=== PATIENT | female | born 1975 ===

== ENCOUNTER 2022-05-26 10:28 | Observation (INO) ==
[2022-05-26] MEDS ORDERED: Ondansetron 4 mg VIAL 2 MG/ML 2 ml VIAL ONE (10:38)
[2022-05-26] MEDS ORDERED: oxyCODONE SR 10 mg TAB ONE (10:38)
[2022-05-26] MEDS ORDERED: Scopolamine 1 mg/72hr PATCH ONE (10:38)
[2022-05-26] MEDS ORDERED: Clindamycin 900 MG/D5W BAG IVPB ONE (11:15)
[2022-05-26 11:19] LABS: ABS Eosinophils 0.1 10^3/ul (0-0.6); ABS Lymphocytes 1.6 10^3/ul (1.0-4.8); ABS Monocytes 0.3 10^3/ul (0-0.8); ABS Neutrophils 3.8 10^3/ul (1.5-7.7); Eosinophil % 2.1 %; Hematocrit 40 % (35-47); Hemoglobin 13.6 g/dL (12.0-16.0); Lymphocyte % 27.6 %; Mean Corpuscular HGB Conc 34 g/dL (31-36); Mean Corpuscular Hemoglobin 30 pg (27-31); Mean Corpuscular Volume 89 fL (80-97); Mean Platelet Volume 8.9 fL (7.4-10.4); Nucleated Red Blood Cells % 0.1; Platelet Count 172 10^3/uL (150-450); Red Blood Count 4.55 10^6 /uL (3.70-4.87); Red Cell Distribution Width 13 % (10-15); White Blood Count 5.9 10^3/uL (3.5-10.8)
[2022-05-26] MEDS ORDERED: fentaNYL 100 mcg/2 ml 50 MCG/ML VIAL IV SLOW PU ONE (11:32)
[2022-05-26] MEDS ORDERED: Flumazenil 0.5 mg/5 ml 0.1 MG/ML 5 ml VIAL IV PRN (11:32)
[2022-05-26] MEDS ORDERED: Naloxone 0.4 mg VIAL 0.4 mg/ml 1 ml VIAL IV PUSH PRN ×2 (11:32→11:57)
[2022-05-26] MEDS ORDERED: Midazolam 10 mg/10 ml VIAL 1 mg/ml 10 ml VIAL (10 mg) IV SLOW PU ONE (11:32)
[2022-05-26 11:37] LABS: Activated Partial Thrombo Time 30.5 seconds (26.0-38.0); INR 1.04 (0.88-1.18)
[2022-05-26] MEDS ORDERED: fentaNYL 100 mcg/2 ml 50 MCG/ML VIAL ONE (11:51)
[2022-05-26] MEDS ORDERED: Lidocaine 1% VIAL 10 MG/ML VIAL 30 ML ONE (11:51)
[2022-05-26] MEDS ORDERED: nitroGLYCERIN DRIP 25,000 MCG/250 ML BTL ONE (11:51)
[2022-05-26] MEDS ORDERED: Midazolam 5 mg/5 ml VIAL 1 mg/ml 5 ml VIAL (5 mg) ONE (11:51)
[2022-05-26] MEDS ORDERED: Iohexol 350 (CONTRAST) 100 ML PAK IV ONE ×2 (11:51→12:46)
[2022-05-26] MEDS ORDERED: Heparin 2 UNITS/ML IVPREMIX 3,000 UNIT/1,500 ML BAG IV ONE (11:51)
[2022-05-26 11:56] LABS: Blood Urea Nitrogen 13 mg/dL (6-24); CO2 Carbon Dioxide 25 mmol/L (22-32); Calcium 8.7 mg/dL (8.6-10.3); Chloride 108 mmol/L (101-111); Creatinine, Serum 0.69 mg/dL (0.51-0.95); Glucose 79 mg/dL (70-100); Sodium 137 mmol/L (135-145); eGFR CKD-EPI 106.3 (>60)
[2022-05-26 11:57] LABS: HCG Pregnancy < 0.60 mIU/mL
[2022-05-26] MEDS ORDERED: HYDROmorphone PCA 20 MG/20 ML PCA.SYRING PCA SCH (12:00)
[2022-05-26 12:16] LABS: Anion Gap 4 mmol/L (2-11)
[2022-05-26] MEDS ORDERED: Phenylephrine 40 mcg/mL 10mL (400mcg) SYRINGE ONE (12:29)
[2022-05-26] MEDS ORDERED: HYDROmorphone 0.5 MG/0.5 ML SYRINGE ONE ×3 (13:39→14:14)
[2022-05-26] MEDS: NS 0.9% 1000 ml BAG 1,000 ML IV SCH ×2 (15:15→23:29)
[2022-05-26] MEDS: Ondansetron 4 mg VIAL 2 MG/ML 2 ml VIAL IV SCH (18:52)
[2022-05-27] MEDS: Ondansetron 4 mg VIAL 2 MG/ML 2 ml VIAL IV SCH ×2 (01:12→06:18)
[2022-05-27] MEDS: NS 0.9% 1000 ml BAG 1,000 ML IV SCH (05:25)
[2022-05-27 07:56] VITALS: BP 103/61
[2022-05-27] MEDS ORDERED: HYDROcodone/ACETAMIN 5/325 mg TAB PO PRN (08:19)
[2022-05-27] MEDS ORDERED: CMCS: Ketorolac 10 mg TAB (NF) PO SCH (12:00)
== END 2022-05-27 11:30 | disposition home or self-care (01) ==
LOC: SSU 10:28 → CHICATH 10:28
PROVIDERS: ADMIT Internal Medicine; ATTEND Radiology Diagnostic Radiology
PROC: ANG.UFE (2022-05-26 12:10)